=== PATIENT | male | born 1960 | race Caucasian/White ===

== ENCOUNTER 2019-06-01 13:46 | Outpatient (CLI) | payer OTHER ==
[2019-06-01 14:55] LABS: BASOPHILS # (AUTO) 0.03 x10^3/uL (0-0.1); BASOPHILS % (AUTO) 1 % (0-1); EOSINOPHILS # (AUTO) 0.09 x10^3/uL (0-0.4); EOSINOPHILS % (AUTO) 1 % (1-7); LYMPHOCYTES # (AUTO) 2.23 x10^3/uL (1-3.4); LYMPHOCYTES % (AUTO) 33 % (22-44); MD NO; MEAN CORPUSCULAR HEMOGLOBIN 31.9 pg (27.5-34.5); MEAN CORPUSCULAR HGB CONC 33.3 g/dL (33.2-36.2); MEAN PLATELET VOLUME 8.1 fL (7.4-10.4); MONOCYTES # (AUTO) 0.57 x10^3/uL (0.2-0.8); MONOCYTES % (AUTO) 9 % (2-9); NEUTROPHILS # (AUTO) 3.79 x10^3/uL (1.8-6.8); NEUTROPHILS % (AUTO) 56 % (42-75); PLATELET COUNT 228 x10^3/uL (130-400); RED BLOOD COUNT 4.55 x10^6/uL (4.38-5.82); RED CELL DISTRIBUTION WIDTH 14.3 % (9.4-14.8)
[2019-06-01 15:07] LABS: ANION GAP 7 mmol/L (5-15); CHLORIDE 109 mmol/L (98-107)
[2019-06-01 15:08] LABS: CREATININE 0.96 mg/dL (0.7-1.3)
[2019-06-05] MEDS ORDERED: ESOM40CA PO (15:43)
== END 2019-06-01 23:59 | disposition home or self-care (01) ==
LOC: STAR 13:46
PROVIDERS: ATTEND Orthopaedic Surgery
DX: Z01.818 Encounter for other preprocedural examination (principal); M17.12 Unilateral primary osteoarthritis, left knee
CPT/HCPCS: 36415; 80048; 85025; 87081; 93005

== ENCOUNTER 2019-06-09 08:22 | Inpatient (IN) | payer OTHER ==
[~2019-06-09] VITALS: Ht 172.7 cm; Wt 113.0 kg
[2019-06-10 06:42] VITALS: BP 95/55
== END 2019-06-10 11:45 | disposition home or self-care (01) | DRG 470 ==
LOC: ORIP 08:22 → MERGE 09:30 → 4NOR 12:09 → DCLOUNGE 06-10 11:38
PROVIDERS: ADMIT Orthopaedic Surgery; ATTEND Orthopaedic Surgery
PROC: 0SRD0J9 Replacement of Left Knee Joint with Synthetic Substitute, Cemented, Open Approach (ICD-10-PCS; principal; 2019-06-09)
PROC: 3E0T3BZ Introduction of Anesthetic Agent into Peripheral Nerves and Plexi, Percutaneous Approach (ICD-10-PCS; 2019-06-09)
DX: M17.12 Unilateral primary osteoarthritis, left knee (principal); Z82.3 Family history of stroke; Z82.49 Family history of ischemic heart disease and other diseases of the circulatory system
CPT/HCPCS: C1713; G0378; J0171; J0690; J1100; J1170; J1650; J1885; J2250; J2274; J2405; J2704; J2795; J3010; J3370; J3480; C1776; J0330